=== PATIENT | male | born 1955 | race Caucasian/White ===

== ENCOUNTER 2023-11-18 22:15 | Emergency (ER) | payer OTHER, SELFPAY ==
[2023-11-18 22:17] VITALS: BP 176/94
--- NOTE | 2023-11-18 23:56 | ED.GENMED ---
History of Present Illness
<HOLA Guidry - Last Filed: 11/19/23 01:45>
General
Chief Complaint: Eye Problems
Source: patient
Exam Limitations: none
Time Seen by Provider: 11/18/23 23:38
Nursing documentation reviewed up to this point in time: agreed with
Travel History
Have you had any contact with someone who has COVID-19?: No
Do you have any symptoms of coronavirus? Fever > 100 degrees, chills, cough, shortness of breath, sore throat, loss of taste or smell, muscle aches, or headache?: No
History of Present Illness
History of Present Illness:
This is a 68 year old male, with a PMH of DM and macular degeneration, who presents to the ED c/o left eye pain and redness x 1 day. Pt states he had an injection in his eye 5 days ago for his diabetes. He states he had pain post injection but it
was getting better up until today. He used ofloxacin topical eye drops Q2hrs x 2 days after the injection. Today, he has had increasing pain and redness which prompted him to come in tonight. He has had the same injection in his right eye 1 year
ago, but the pain this time seems worse. He states his vision is still blurry but notes that is normal for him after the injection. He denies any eye drainage, fever, ARTHUR, CP, SOB, nausea, or vomiting. Also denies any possible foreign body today.
Past History
<HOLA Guidry - Last Filed: 11/19/23 01:45>
Past History
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
ED Past Surgical History: None
Social History
Tobacco: Non-smoker
Alcohol: None
Drug: None
Personal:
Living: with family
Employment: Employed
Family History
Family History: Negative Early CAD
Review of Systems
<HOLA Guidry - Last Filed: 11/19/23 01:45>
Review of Systems
All Other Systems: ROS reviewed and negative except as documented in HPI and ROS
Constitutional: Reports no symptoms; Denies fever or chills
EENT: Reports other (left eye pain and redness)
Respiratory: Reports no symptoms; Denies trouble breathing
Cardiac: Reports no symptoms; Denies chest pain
ABD/GI: Reports no symptoms; Denies nausea or vomiting
: Reports no symptoms
Musculoskeletal: Reports no symptoms
Skin: Reports no symptoms
Neurological: Reports no symptoms; Denies headache
Psychiatric: Reports no symptoms
Phy Exam
<Lila Luna [facility] - Last Filed: 11/19/23 01:45>
General Physical Exam
General Presentation: well appearing and no apparent distress
General age: appears stated age
General Skin: warm and dry
General Habitus: normal
General Mental: alert
General Hydration: appears well hydrated
ENT Exam
ENT Exam: EOMI, pharynx normal, normocephalic and swallowing well
Eye Exam
Eye Exam: PERRL, EOMI, globe normal and other (erythema noted along medial conjunctiva and sclera. There is no drainage, discharge, or crusting)
Able to obtain acuity?: Yes
Right 20/: 40
Left 20/: 80
Both 20/: 30
Eye Exam General: PERRL: bilateral and EOM intact: bilateral
Pupil Exam: Bilateral: round and reactive
Cornea Exam: abrasion: Left
Tonometry: Side: Left
Pressure: 15
Cardiovascular Exam
Cardiovascular Exam: regular rate/rhythm, no murmur and normal peripheral pulses
Pulmonary Exam
Pulmonary Exam: lungs clear and no respiratory distress
Gastrointestinal Exam
Gastrointestinal Exam: normal bowel sounds, non tender, soft and non distended
Neurological Exam
Neurological Exam: alert and oriented x3
Musculoskeletal Exam
Musculoskeletal Exam: full ROM and no edema
Skin Exam
Skin Exam: normal color and warm/dry
Psychiatric Exam
Psychiatric Exam: normal mood/affect
Course
<HOLA Guidry - Last Filed: 11/19/23 01:45>
Vital Signs
Initial and Last Documented VS:
Initial Vital Signs
Temp Pulse Resp BP Pulse Ox
98.3 F 100 20 176/94 98
11/18/23 22:17 11/18/23 22:17 11/18/23 22:17 11/18/23 22:17 11/18/23 22:17
Last Documented Vital Signs
Temp Pulse Resp BP Pulse Ox
98.3 F 100 20 176/94 98
11/18/23 22:17 11/18/23 22:17 11/18/23 22:17 11/18/23 22:17 11/18/23 22:17
<Raul Rea DO - Last Filed: 11/19/23 00:31>
Vital Signs
Initial and Last Documented VS:
Initial Vital Signs
Temp Pulse Resp BP Pulse Ox
98.3 F 100 20 176/94 98
11/18/23 22:17 11/18/23 22:17 11/18/23 22:17 11/18/23 22:17 11/18/23 22:17
Last Documented Vital Signs
Temp Pulse Resp BP Pulse Ox
98.3 F 100 20 176/94 98
11/18/23 22:17 11/18/23 22:17 11/18/23 22:17 11/18/23 22:17 11/18/23 22:17
<HOLA Guidry - Last Filed: 11/19/23 01:45>
*Critical Care Note
Total Time (30-74mins, 75-104mins- exclusive of procedures): Not Applicable
ED Attending Note
<HOLA Guidry - Last Filed: 11/19/23 01:45>
-
Portions of this chart may have been created with voice recognition software.� Occasional wrong word or��sound alike� substitutions may have occurred due to the inherent limitations of voice recognition software.
<Raul Rea DO - Last Filed: 11/19/23 00:31>
ED Attending Note
Patient seen and examined by attending physician: Yes
I performed the substantive portion of visit, reviewed & personally made and approve the management plan that is documented in note by myself or CAROLYN.: Yes
ED Attending Note:
Pleasant 62-year-old male presents with
Discharge Plan
Departure
Patient Disposition: Home (Routine Discharge)
Date of Disposition: 11/19/23
Time of Disposition: 00:15
Patient with high blood pressure during this ER visit?: Yes
Discharge Problem:
Corneal abrasion, left
Instructions: Corneal Abrasion (DC), How to Use Eye Drops, BLOOD PRESSURE
Prescriptions:
No Action
insulin glargine 100 U/ML solution
12 unit SQ DAILY
insulin aspart U-100 [Novolog U-100 Insulin aspart] 1,000 UNITS/10 ML solution
5 - 8 units SC .BEFORE MEALS
hydrocodone-acetaminophen 1 TABLET tablet
1 tab PO Q4HPRN PRN (Reason: breakthrough pain) Qty: 10 0RF
tamsulosin 0.4 MG capsule
0.4 mg PO DAILY Qty: 7 0RF
diclofenac sodium 75 MG tablet,delayed release (DR/EC)
75 mg PO BID Qty: 10 0RF
Referrals:
UNKNOWN - PT NOT,INTERVIEWE [Unknown Provider] -
Activity Restrictions/Additional Instructions:
Please continue to take your ofloxacin that was previously prescribed every 4 hours while awake for 5 days. Follow-up with your warp spooler tomorrow to discuss this corneal abrasion.
It was a pleasure meeting you and taking part in your care. We hope for your continued healing and wellness.
Please read discharge instructions in their entirety. However, they are for general education and may not describe your exact diagnosis at discharge. Information on your ER visit and medical conditions were discussed with you along with appropriate
follow up information...
If indicated, please take your medications as instructed and indicated on discharge paperwork.
Please schedule a follow up appointment as directed. Call to schedule an appointment
Please return to the emergency department with ANY change in, persisting, or worsening of symptoms. If any of your symptoms do not improve, or persist, or become more severe within 6-12 hours, please return to the emergency department for further
care.
Please return to the emergency department if you develop a headache, neck pain/stiffness, fever greater than 100.4F, chest pain, shortness of breath, persistent nausea, vomiting, slurred speech, difficulty walking, numbness/tingling, weakness, signs
of infection or any other symptoms that are worrisome to you.
If you have any questions or concerns please do not hesitate to call the Hospital at or E-mail me directly at [email or web address]
Interventions
Interventions:
*Risk Screen - Suicide Last Done: 11/18/23 22:17
*Neglect/Abuse Screening Last Done: 11/18/23 22:17
*Nursing Disposition Last Done: 11/19/23 00:23
Discharge Date and Time
Discharge Date/Time: 11/19/23 00:24
== END 2023-11-19 00:24 | disposition home or self-care (01) ==
LOC: EMR 22:15
PROVIDERS: EMERGENCY PHYSICIAN Student in an Organized Health Care Education/Training Program; FAMILY PHYSICIAN Family Medicine
DX: S05.02XA Injury of conjunctiva and corneal abrasion without foreign body, left eye, initial encounter (principal); X58.XXXA Exposure to other specified factors, initial encounter; E11.9 Type 2 diabetes mellitus without complications; H35.30 Unspecified macular degeneration
CPT/HCPCS: 99282

== ENCOUNTER 2024-05-30 22:43 | Emergency (ER) | payer OTHER, SELFPAY ==
[2024-05-30 22:43] VITALS: BMI 19.8
[2024-05-30 23:08] VITALS: BP 152/79
[2024-05-31] VITALS: BP 131/89
--- NOTE | 2024-05-31 00:27 | ED.GENMED ---
History of Present Illness
General
Chief Complaint: Visual Problem
Source: patient
Exam Limitations: none
Time Seen by Provider: 05/31/24 00:19
History of Present Illness
History of Present Illness:
See MDM
Past History
Past History
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
ED Past Surgical History: None
Social History
Tobacco: Non-smoker
Alcohol: None
Drug: None
Personal:
Living: with family
Employment: Employed
Family History
Family History: Negative Early CAD
Phy Exam
Physical Exam
Physical Exam:
See MDM
Course
Orders/Labs/Results
Orders:
Orders
05/31/24 00:26
Visual Acuity- Treatment ONCE
Vital Signs
Initial and Last Documented VS:
Initial Vital Signs
Temp Pulse Resp BP Pulse Ox
97.3 F 78 16 152/79 98
05/30/24 23:08 05/30/24 23:08 05/30/24 23:08 05/30/24 23:08 05/30/24 23:08
Last Documented Vital Signs
Temp Pulse Resp BP Pulse Ox
97.3 F 68 18 130/87 99
05/30/24 23:08 05/31/24 01:00 05/31/24 01:00 05/31/24 01:00 05/31/24 01:00
MDM/Problems Addressed
Differential Diagnosis Includes:
HPI and MDM Narrative:
68-year-old male presenting for evaluation of left eye blurry vision. He noticed it a few hours ago and it is painless. Patient believes this is bleeding in the back of his eye from his known macular degeneration. Follows with Dr. Mauro Genao
for his eye issues and has received needle injections in his right eye for macular degeneration. He states his right eye cleared up but he is now noticing issues in his left eye. Patient believes that this is related to his macular degeneration.
Patient believes he can likely call the immersion metal cleaner tomorrow to be seen expeditiously. Family at bedside is wondering if he can reach out to Dr. Genao's office
Physical exam
General: Well appearing and non-toxic
HEENT: protecting airway. Bilateral pupils equal reactive. EOMI. No hyphema noted. Decreased vision noted to left upper lower medial mejia
Neck: appears supple
CV: No evidence of cyanosis
Resp: No accessory muscle use
Abd: Non-distended
Extremities: No deformities
Neuro: alert
Psych: Normal affect
Skin: Intact
Problems Addressed including Acute and Chronic Conditions affecting care:
1. Blurry vision
Acuity: acute
Prognosis: stable
Details: Likely in the setting of his macular degeneration
Updates
Patient is visual acuity in the right eye is 20/80. Patient unable to read any of the letters with his left eye.
1:45 AM Case discussed with his immersion metal cleaner Dr. Genao who indicated patient go home and to call the office for Luu in the morning for evaluation
Differential Diagnosis (but not limited to): Macular degeneration, stroke
Testing considered: CT head
Drug therapy (if applicable): OTC meds, please see d/c instruction regarding Rx drugs
Amount and/or Complexity of Data Reviewed
Clinical info obtained from: Patient
External data reviewed: N/A
Labs I independently reviewed (but not limited to): N/A
Radiology: N/A
Pulse Ox: not hypoxic
EKG independently reviewed: N/A
Roofer Apprentice: N/A
Critical Care: N/A
Risk of Complication:
Social Determinants of health: Good social support
Discussed with other providers: Ophthalmology
Escalation of Care includes Admit/Obs: After being observed in the Emergency Department, pt stable for discharge.
Occasional wrong word or 'sound a like' substitutions may have occurred due to the inherent limitations of voice recognition software. Read the chart carefully and recognize, using context, where substitutions have occurred.
*Critical Care Note
Total Time (30-74mins, 75-104mins- exclusive of procedures): Not Applicable
ED Attending Note
-
Portions of this chart may have been created with voice recognition software.� Occasional wrong word or��sound alike� substitutions may have occurred due to the inherent limitations of voice recognition software.
Discharge Plan
Departure
Patient Disposition: Home (Routine Discharge)
Date of Disposition: 05/31/24
Time of Disposition: 01:47
Patient with high blood pressure during this ER visit?: No
Discharge Problem:
Blurred vision, left eye
Prescriptions:
No Action
insulin glargine 100 U/ML solution
12 unit SQ DAILY
insulin aspart U-100 [Novolog U-100 Insulin aspart] 1,000 UNITS/10 ML solution
5 - 8 units SC .BEFORE MEALS
hydrocodone-acetaminophen 1 TABLET tablet
1 tab PO Q4HPRN PRN (Reason: breakthrough pain) Qty: 10 0RF
tamsulosin 0.4 MG capsule
0.4 mg PO DAILY Qty: 7 0RF
diclofenac sodium 75 MG tablet,delayed release (DR/EC)
75 mg PO BID Qty: 10 0RF
Referrals:
Williams Amor MD [Family Provider] -
Activity Restrictions/Additional Instructions:
As we discussed, Dr. Genao is aware you are here today. He suggested calling the office for Luu in the morning and to let the banking officer know that you should be seen.
Interventions
Interventions:
*Risk Screen - Suicide Last Done: 05/30/24 23:08
*General Assessment Last Done: 05/30/24 23:08
*Neglect/Abuse Screening Last Done: 05/30/24 23:08
*ED COVID-19 Vaccine History Last Done: 05/31/24 00:41
ED- Neurological Assessment Last Done: 05/31/24 00:40
ED-EENT Assessment Last Done: 05/31/24 00:40
ED Swallowing Screen Last Done: 05/31/24 00:40
Discharge Date and Time
Print Language: [id number]
--- NOTE | 2024-05-31 00:37 | EDRN ---
At 00:26, RN assessed pt.'s visual acuity via snellen chart. Pt. reports he normally wears glasses that he is prescribed, but he does not have them with him, so test was done without corrective lenses, which pt. normally wears. Pt.'s left eye was
untestable, as he could not even see the first line of the snellen chart, pt. states, 'I can't see any of the letters out of my left eye, I can tell you are there and holding something like I see your figure, but I can't make out any of the
letters'.
[2024-05-31 01:00] VITALS: BP 130/87
== END 2024-05-31 02:13 | disposition home or self-care (01) ==
LOC: EMR 22:43
PROVIDERS: EMERGENCY PHYSICIAN Student in an Organized Health Care Education/Training Program; FAMILY PHYSICIAN Family Medicine
DX: H53.8 Other visual disturbances (principal); H35.30 Unspecified macular degeneration; E11.9 Type 2 diabetes mellitus without complications
CPT/HCPCS: 99282

== ENCOUNTER 2024-07-23 21:55 | Emergency (ER) | payer OTHER, SELFPAY ==
[2024-07-23 22:01] VITALS: BP 124/84
--- NOTE | 2024-07-24 00:24 | ED.GENMED ---
History of Present Illness
General
Chief Complaint: Skin Problem
Source: patient
Exam Limitations: none
Time Seen by Provider: 07/23/24 23:56
Nursing documentation reviewed up to this point in time: agreed with
History of Present Illness
History of Present Illness:
This is a 68-year-old gentleman who has history of insulin dependent diabetes, somewhat poorly controlled with A1c of 9.6 May of this year. Following with endocrine as well as PCP. Recently began CGM last month and placed a CGM pod on his
right posterior upper arm over 2 weeks ago without difficulty. Removed that CGM and then replaced it with another one 3 days ago. After 3 days, CGM stopped functioning and he received an error message telling him to remove the CGM. When he did so
he noticed focal redness and a small 'pus pocket' at site of CGM puncture site.
He has not had a fever nor chills. He does notice mild local tenderness to palpation.
He admits that blood sugars have been 'up-and-down'
He does have regular glucometer with glucometer strips available to him.
No prior history of MRSA nor skin abscesses.
Past History
Past History
ED Past Medical History: Arrthythmia, HTN, Hypercholesterolemia, IDDM and Psychiatric (Anxiety)
ED Past Surgical History: None
Social History
Tobacco: Non-smoker
Alcohol: None
Drug: None
Personal:
Living: with family
Employment: Retired
Family History
Family History: Negative Early CAD
Phy Exam
Physical Exam
Physical Exam:
GENERAL: 68-year-old gentleman appears his stated age, bright and alert, pleasant, appears in no acute distress. Afebrile. Son is accompanying.
EYE: anicteric
NECK: Supple, nontender, no meningismus, no significant adenopathy.
ENT: oral mucosa is moist. No rhinorrhea.
CARDIAC: Regular rate and rhythm. no murmur.
LUNGS: Clear breath sounds bilaterally, no acute respiratory distress
ABDOMEN: Soft, nondistended, without focal tenderness
NEUROLOGICAL: Alert and oriented x3, no focal neuro deficits. Gait is jimenez and steady.
SKIN: Warm and dry, normal color, good turgor. The right posterior upper arm has a 1.5 cm firm red nodule with central pustule with very minimal surrounding erythema. Mild local tenderness to palpation. There is no lymphangitis. No palpable
heat. No axillary adenopathy.
MUSCULOSKELETAL: No C/C/E. peripheral pulses are full and equal b/l.
PSYCH: Normal and appropriate interaction.
Course
Orders/Labs/Results
Orders:
Orders
07/24/24 00:00
Humerus, Right 2 Views [CR Humerus - Right Min 2 View*] Stat
Comment:
Reason For Exam: tender
07/24/24 00:18
Doxycycline [Vibramycin] 100 mg PO NOW STA
Vital Signs
Initial and Last Documented VS:
Initial Vital Signs
Temp Pulse Resp BP Pulse Ox
97.9 F 76 18 124/84 98
07/23/24 22:01 07/23/24 22:01 07/23/24 22:01 07/23/24 22:01 07/23/24 22:01
Last Documented Vital Signs
Temp Pulse Resp BP Pulse Ox
97.9 F 79 19 142/87 98
07/23/24 22:01 07/24/24 00:35 07/24/24 00:35 07/24/24 00:35 07/24/24 00:35
MDM/Problems Addressed
Differential Diagnosis Includes:
Patient presents with focal skin abscess right posterior upper arm at site of CGM pod. He does not believe any of the pod mechanical parts were disrupted upon removal but must consider retained foreign body.
Will check x-ray to assess soft tissues for potential foreign body.
Will initiate doxycycline for focal skin abscess with mild surrounding cellulitis. No prior history of MRSA but doxycycline should cover potential community-acquired MRSA.
He does have history of diabetes with hemoglobin A1c reportedly of 9 in May. Overall not well controlled. Following with endocrine. Nothing in history nor exam to suggest HHNK nor DKA.
Overall quite well in appearance and afebrile.
Skin abscess is quite firm without fluctuance. Not amenable to I&D at this point.
Will initiate a course of doxycycline and recommend supportive measures, local warm compresses 4 times daily. Tylenol versus ibuprofen as needed for pain.
Prompt follow-up with PCP for recheck.
Return precautions discussed.
Chronic conditions affecting care: DM
*Radiology
Radiology exam reviewed: preliminary read by ED provider (X-ray right upper arm shows no evidence of foreign body, no subcu air.)
*Pulse Oximetry
Patient hypoxic: no
*Critical Care Note
Total Time (30-74mins, 75-104mins- exclusive of procedures): Not Applicable
ED Attending Note
-
Portions of this chart may have been created with voice recognition software.� Occasional wrong word or��sound alike� substitutions may have occurred due to the inherent limitations of voice recognition software.
Discharge Plan
Departure
Patient Disposition: Home (Routine Discharge)
Date of Disposition: 07/24/24
Time of Disposition: 00:44
Patient with high blood pressure during this ER visit?: No
Condition: Good
Discharge Problem:
Cutaneous abscess of right upper extremity
Instructions: Skin Abscess
Prescriptions:
New
doxycycline monohydrate 100 mg capsule
100 mg PO BID Qty: 20 1RF
No Action
insulin glargine 100 U/ML solution
12 unit SQ DAILY
insulin aspart U-100 [Novolog U-100 Insulin aspart] 1,000 UNITS/10 ML solution
5 - 8 units SC .BEFORE MEALS
hydrocodone-acetaminophen 1 TABLET tablet
1 tab PO Q4HPRN PRN (Reason: breakthrough pain) Qty: 10 0RF
tamsulosin 0.4 MG capsule
0.4 mg PO DAILY Qty: 7 0RF
diclofenac sodium 75 MG tablet,delayed release (DR/EC)
75 mg PO BID Qty: 10 0RF
Referrals:
Williams Amor MD [Family Provider] - Follow up in 2-3 days
Interventions
Interventions:
*Risk Screen - Suicide Last Done: 07/23/24 22:04
*General Assessment Last Done: 07/23/24 22:04
*Neglect/Abuse Screening Last Done: 07/23/24 22:04
ED-Skin Assessment Last Done: 07/23/24 23:16
Discharge Date and Time
Print Language: MONGOLIAN
[2024-07-24] MEDS: VIBRAMYCIN 100 MG PO (00:32)
[2024-07-24 00:35] VITALS: BP 142/87
== END 2024-07-24 00:51 | disposition home or self-care (01) ==
LOC: EMR 21:55
PROVIDERS: EMERGENCY PHYSICIAN Emergency Medicine; FAMILY PHYSICIAN Family Medicine
DX: L02.413 Cutaneous abscess of right upper limb (principal); I10 Essential (primary) hypertension; E78.00 Pure hypercholesterolemia, unspecified; E11.9 Type 2 diabetes mellitus without complications
CPT/HCPCS: 99283; 73060

== ENCOUNTER 2024-08-21 14:47 | Emergency (ER) | payer OTHER, SELFPAY ==
[2024-08-21 14:50] VITALS: BP 162/87
[2024-08-21 16:17] VITALS: BMI 18.9
--- NOTE | 2024-08-21 17:02 | ED.GENMED ---
History of Present Illness
<Zoila Ovalle MD, Resident - Last Filed: 08/21/24 17:14>
General
Chief Complaint: Fall
Time Seen by Provider: 08/21/24 16:30
History of Present Illness
History of Present Illness:
68 y/o male with pmhx of IDDM presenting to the ED with right groin pain. Patient notes he got pulled to the ground by his dog around noon today. Notes hitting his head on the ground. Denies LOC, nausea, vomiting, neck pain, headache, change in
vision. Patient states was able to stand up and walk back to his home after his fall but currently is having pain in his right groin bearing weight.
Past History
<Zoila Ovalle MD, Resident - Last Filed: 08/21/24 17:14>
Past History
ED Past Medical History: Arrthythmia, HTN, Hypercholesterolemia, IDDM and Psychiatric (Anxiety)
ED Past Surgical History: None
Social History
Tobacco: Non-smoker
Alcohol: None
Drug: None
Personal:
Living: with family
Employment: Retired
Family History
Family History: Negative Early CAD
Review of Systems
<Zoila Ovalle MD, Resident - Last Filed: 08/21/24 17:14>
Review of Systems
Constitutional: Reports no symptoms
EENT: Reports no symptoms
Respiratory: Reports no symptoms
Cardiac: Reports no symptoms
ABD/GI: Reports no symptoms
: Reports no symptoms
Musculoskeletal: Reports other (right groin pain)
Skin: Reports no symptoms
Neurological: Reports no symptoms
Endocrine: Reports no symptoms
Hematologic/Lymphatic: Reports no symptoms
Psychiatric: Reports no symptoms
Phy Exam
<Zoila Ovalle MD, Resident - Last Filed: 08/21/24 17:14>
Physical Exam
Physical Exam:
GENERAL: Alert, in no apparent distress.
EYE: pupils equal and reactive.
NECK: Supple, no significant adenopathy.
ENT: o/p clr, mmm.
CARDIAC: Regular rate and rhythm.
LUNGS: Clear breath sounds bilaterally, no acute respiratory distress, no wheezes/rales/rhonchi
ABDOMEN: Soft, without focal tenderness, no r/g, no cvat
NEUROLOGICAL: Alert and oriented, no focal neuro deficits
SKIN: Warm and dry, skin intact.
MUSCULOSKELETAL: No edema, well perfused. RUE no tenderness, normal ROM. RLE no joint tenderness, no tenderness on greater trochanter, knee, ankle. Pain reproduced with active and passive flexion of the hip. External/internal hip rotation without
pain. ROm normal. Proximal and distal pulses strong bilaterally.
PSYCH: Normal and appropriate interaction.
Course
<Zoila Ovalle MD, Resident - Last Filed: 08/21/24 17:14>
Orders/Labs/Results
Orders:
Orders
08/21/24 16:15
CR Hip - RT w/wo Pel 2-3 Vw* Urgent
Comment:
Reason For Exam: fall, pain
Include a pelvis x-ray?: Yes
08/21/24 16:56
Acetaminophen [Tylenol] 1,000 mg PO NOW STA
08/21/24 18:29
CT Pelvis W/o Iv Contrast Urgent
Comment:
Reason For Exam: concern for right pelvic fracture
08/21/24 21:08
Walker [Treatment- Walker] ONCE
Ibuprofen [Motrin] 600 mg PO NOW STA
Vital Signs
Initial and Last Documented VS:
Initial Vital Signs
Temp Pulse Resp BP Pulse Ox
99.1 F 90 18 162/87 98
08/21/24 14:50 08/21/24 14:50 08/21/24 14:50 08/21/24 14:50 08/21/24 14:50
Last Documented Vital Signs
Temp Pulse Resp BP Pulse Ox
99.1 F 85 16 168/88 97
08/21/24 14:50 08/21/24 21:15 08/21/24 21:15 08/21/24 21:01 08/21/24 21:02
<Mauro Conrad MD - Last Filed: 08/21/24 22:45>
Orders/Labs/Results
Orders:
Orders
08/21/24 16:15
CR Hip - RT w/wo Pel 2-3 Vw* Urgent
Comment:
Reason For Exam: fall, pain
Include a pelvis x-ray?: Yes
08/21/24 16:56
Acetaminophen [Tylenol] 1,000 mg PO NOW STA
08/21/24 18:29
CT Pelvis W/o Iv Contrast Urgent
Comment:
Reason For Exam: concern for right pelvic fracture
08/21/24 21:08
Walker [Treatment- Walker] ONCE
Ibuprofen [Motrin] 600 mg PO NOW STA
Vital Signs
Initial and Last Documented VS:
Initial Vital Signs
Temp Pulse Resp BP Pulse Ox
99.1 F 90 18 162/87 98
08/21/24 14:50 08/21/24 14:50 08/21/24 14:50 08/21/24 14:50 08/21/24 14:50
Last Documented Vital Signs
Temp Pulse Resp BP Pulse Ox
99.1 F 85 16 168/88 97
08/21/24 14:50 08/21/24 21:15 08/21/24 21:15 08/21/24 21:01 08/21/24 21:02
<Zoila Ovalle MD, Resident - Last Filed: 08/21/24 17:14>
MDM/Problems Addressed
Differential Diagnosis Includes:
Pelvic fracture
Hip fracture
Ligamentous injury
MDM/Problems Addressed:
- Hip + Pelvis x-ray
- Pain management
- Will decide on hip/pelvic CT after x-ray
<Zoila Ovalle MD, Resident - Last Filed: 08/21/24 17:14>
*Critical Care Note
Total Time (30-74mins, 75-104mins- exclusive of procedures): Not Applicable
ED Attending Note
<Zoila Ovalle MD, Resident - Last Filed: 08/21/24 17:14>
-
Portions of this chart may have been created with voice recognition software.� Occasional wrong word or��sound alike� substitutions may have occurred due to the inherent limitations of voice recognition software.
<Mauro Conrad MD - Last Filed: 08/21/24 22:45>
ED Attending Note
Patient seen and examined by attending physician: Yes
I performed a history and physical exam of patient and discussed management with resident, I reviewed resident's note and agree with documented findings and plan of care.: Yes
ED Attending Note:
Patient fell landing on his right side. Complaining of right groin pain. No other injury or complaint. Had a minor head injury. Denies headache neck pain chest pain arm pain etc. Only complaining of pain in the right groin. Able to ambulate
but with pain denies thinners
On exam patient is nontoxic in no distress. Normocephalic atraumatic. Neck supple and nontender. No chest wall tenderness. Abdomen is nontender. Upper extremities are unremarkable. No true pain with right hip rotation. No deformity. No
shortening or rotation. No pain with pelvic compression.
Impression is right inguinal pain. Clinically concern for a pelvic fracture. No other serious trauma. X-rays were unremarkable. CT showed a sacral fracture. Nondisplaced fracture of the right pubis and superior pubic ramus. Nondisplaced
intra-articular fracture of the right anterior column. Report was sent to orthopedics. Patient would prefer outpatient management. Orthopedics is comfortable with outpatient management with toe-touch walker and follow-up.
Discharge Plan
Departure
Patient Disposition: Home (Routine Discharge)
Date of Disposition: 08/21/24
Time of Disposition: 21:11
Patient with high blood pressure during this ER visit?: Yes
Condition: Good
Discharge Problem:
Pelvic fracture, Sacral fracture
Instructions: Pelvic fracture, BLOOD PRESSURE
Prescriptions:
No Action
insulin glargine 100 U/ML solution
12 unit SQ DAILY
insulin aspart U-100 [Novolog U-100 Insulin aspart] 1,000 UNITS/10 ML solution
5 - 8 units SC .BEFORE MEALS
hydrocodone-acetaminophen 1 TABLET tablet
1 tab PO Q4HPRN PRN (Reason: breakthrough pain) Qty: 10 0RF
tamsulosin 0.4 MG capsule
0.4 mg PO DAILY Qty: 7 0RF
diclofenac sodium 75 MG tablet,delayed release (DR/EC)
75 mg PO BID Qty: 10 0RF
doxycycline monohydrate 100 mg capsule
100 mg PO BID Qty: 20 1RF
Referrals:
Williams Amor MD [Family Provider] -
Eugene Meraz MD [Active] - Follow up in 2-3 days
Activity Restrictions/Additional Instructions:
Touch toe weightbearing. Use the walker all the time
Call the orthopedist Friday for close follow-up
Interventions
Interventions:
*Risk Screen - Suicide Last Done: 08/21/24 14:50
*General Assessment Last Done: 08/21/24 14:50
*Neglect/Abuse Screening Last Done: 08/21/24 14:50
ED- Fall Risk Assessment Last Done: 08/21/24 17:46
*ED COVID-19 Vaccine History Last Done: 08/21/24 16:17
*Nursing Disposition Last Done: 08/21/24 21:55
ED-Musculoskeletal Assessment Last Done: 08/21/24 16:17
ED- Neurological Assessment Last Done: 08/21/24 16:17
ED-Skin Assessment Last Done: 08/21/24 16:20
Discharge Date and Time
Discharge Date/Time: 08/21/24 21:55
Print Language: SLOVENIAN
[2024-08-21] MEDS: TYLENOL 1000 MG PO (17:29)
[2024-08-21 17:30] VITALS: BP 153/80
[2024-08-21 18:00] VITALS: BP 144/74
[2024-08-21 19:00] VITALS: BP 139/74
[2024-08-21 20:00] VITALS: BP 146/81
[2024-08-21 21:01] VITALS: BP 168/88
[2024-08-21] MEDS: MOTRIN 600 MG PO (21:45)
== END 2024-08-21 21:55 | disposition home or self-care (01) ==
LOC: EMR 14:47
PROVIDERS: EMERGENCY PHYSICIAN Emergency Medicine; FAMILY PHYSICIAN Family Medicine
DX: S32.89XA Fracture of other parts of pelvis, initial encounter for closed fracture (principal); S32.19XA Other fracture of sacrum, initial encounter for closed fracture; S09.90XA Unspecified injury of head, initial encounter; W19.XXXA Unspecified fall, initial encounter; E11.9 Type 2 diabetes mellitus without complications; E78.00 Pure hypercholesterolemia, unspecified; I10 Essential (primary) hypertension; Z79.4 Long term (current) use of insulin
CPT/HCPCS: 99284; 72192; 73502

== ENCOUNTER 2024-10-21 19:40 | Emergency (ER) | payer OTHER, SELFPAY ==
[2024-10-21 19:49] VITALS: BP 172/93
[2024-10-21 20:05] LABS: % Basophils 0.7 % (0-2); % Eosinophils 2.9 % (0-6); % Immature Granulocytes 0.2 % (0-0.5); % Lymphocytes 25.5 % (20.5-51.1); % Monocytes 10.1 % (1.7-9.3); % Neutrophils 60.6 % (42.2-75.2); Absolute Eosinophils 0.2 10^3/uL (0-0.7); Absolute Lymphocytes 1.5 10^3/uL (1.2-3.4); Absolute Monocytes 0.6 10^3/uL (0.1-0.6); Absolute Neutrophils 3.5 10^3/uL (1.4-6.5); Hematocrit 37.7 % (39.0-52.0); Hemoglobin 12.3 g/dL (13.0-18.0); Mean Corp Hgb Conc. 32.6 g/dL (33.0-37.0); Mean Corpuscular Hgb 28.9 pg (27.0-31.0); Mean Corpuscular Volume 88.7 fL (80.0-94.0); Mean Platelet Volume 9.4 fL (7.4-10.4); Nucleated Red Blood Cells % 0 % (-); Platelet Count 205 10^3/uL (130-400); Red Blood Cell Count 4.25 10^6/uL (4.70-6.10); Red Cell Dist. Width 13.3 % (11.5-14.5); White Blood Cell Count 5.8 10^3/uL (4.8-10.8)
[2024-10-21 20:24] LABS: ALT (SGPT) 25 U/L (0-50); AST (SGOT) 27 U/L (17-59); Albumin 4.4 g/dl (3.5-5.0); Alkaline Phosphatase 107 U/L (38-126); Blood Urea Nitrogen 37 mg/dl (9-20); Calcium 9.1 mg/dl (8.4-10.2); Carbon Dioxide 29 mmol/L (22-30); Chloride 99 mmol/L (98-107); Glucose 208 mg/dl (70-99); Potassium 4.4 mmol/L (3.5-5.1); Sodium 136 mmol/L (135-145); Total Bilirubin 0.5 mg/dl (0.2-1.3); Total Protein 6.7 g/dl (6.3-8.2); eGFR > 60.00
--- NOTE | 2024-10-21 20:25 | ED.GENMED ---
History of Present Illness
General
Chief Complaint: Swelling
Time Seen by Provider: 10/21/24 20:21
History of Present Illness
History of Present Illness:
TIME OF INITIAL ENCOUNTER: 8:25 PM
HPI: Over the past couple weeks, the patient was concerned about the appearance of the right greater than left foot. He describes concerns of varicosities at the affected area. He has no shortness of breath. 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
feet 'all day'.
EXAM:
GENERAL: Well appearing in no distress
HEENT: Moist oral mucosa
NEUROLOGIC: Excellent strength all extremities, no obvious coordination deficits
PSYCHIATRIC: Appropriate mental status, normal insight and judgement
EXTREMITIES: There are superficial varicosities which are rather extensive to the medial aspects of both ankles, there is mild soft tissue swelling at the right ankle more than the left ankle, he has strong DP pulses bilaterally
NUMBER AND COMPLEXITY OF PROBLEMS ADDRESSED AT THE ENCOUNTER
� Chronic conditions affecting care: IDDM, A-fib, high blood pressure
� Acute Exacerbation and/or Progression of Chronic Illness: This is an acute problem
� Differential Diagnosis includes: Superficial varicosities, venous stasis, venous insufficiency, no evidence for arterial compromise
AMOUNT AND/OR COMPLEXITY OF DATA TO BE REVIEWED AND ANALYZED
� I performed an independent evaluation of and my interpretation is:
EKG:
CT:
X-rays:
Laboratory Studies: White count 5.8, hemoglobin 12.3, BUN 37, creatinine 1.0 glucose 208
Other: Ultrasound imaging personally reviewed and I agree with radiologist interpretation that there is no DVT
� Review of other/old records: The patient was seen in the emergency department with abdominal pain 2 months ago.
� Clinical information was obtained by an independent historian: I spoke to the son at bedside
� Prescriptions/Medications Considered but not given:
� Further testing considered but not performed:
RISK OF COMPLICATIONS AND/OR MORBIDITY OR MORTALITY OF PATIENT MANAGEMENT
� Social determinants of health affecting care: Lives at home
� Discussion with other providers:
� Escalation of care including admission/observation vs risk of discharge considered: Recommended that he uses compression stockings and I will also given contact information for vascular.
ANY OTHER UPDATES:
Past History
Past History
ED Past Medical History: Arrthythmia, HTN, Hypercholesterolemia, IDDM and Psychiatric (Anxiety)
ED Past Surgical History: None
Social History
Tobacco: Non-smoker
Alcohol: None
Drug: None
Personal:
Living: with family
Employment: Retired
Family History
Family History: Negative Early CAD
Phy Exam
Physical Exam
Physical Exam:
See HPI
Scores
Heart Failure Risk
Heart Failure Risk Score: Not Applicable
Course
Orders/Labs/Results
Orders:
Orders
10/21/24 19:58
Complete Blood Count/With Diff Urgent
Comprehensive Metabolic Panel Urgent
10/21/24 20:02
US Periph Venous LOWER Ext [place] Urgent
Comment:
Reason For Exam: swelling
Abnormal Lab Results
10/21/24
19:58
RBC 4.25 L 10^6/uL
(4.70-6.10)
Hgb 12.3 L g/dL
(13.0-18.0)
Hct 37.7 L %
(39.0-52.0)
MCHC 32.6 L g/dL
(33.0-37.0)
Monocytes % 10.1 H %
(1.7-9.3)
BUN 37 H mg/dl
(9-20)
Glucose 208 H mg/dl
(70-99)
10/21/24 19:58
10/21/24 19:58
Vital Signs
Initial and Last Documented VS:
Initial Vital Signs
Temp Pulse Resp BP Pulse Ox
36.8 C 91 18 172/93 99
10/21/24 19:49 10/21/24 19:49 10/21/24 19:49 10/21/24 19:49 10/21/24 19:49
Last Documented Vital Signs
Temp Pulse Resp BP Pulse Ox
36.8 C 91 18 172/93 99
10/21/24 19:49 10/21/24 19:49 10/21/24 19:49 10/21/24 19:49 10/21/24 19:49
*Critical Care Note
Total Time (30-74mins, 75-104mins- exclusive of procedures): Not Applicable
ED Attending Note
-
Portions of this chart may have been created with voice recognition software.� Occasional wrong word or��sound alike� substitutions may have occurred due to the inherent limitations of voice recognition software.
Discharge Plan
Departure
Patient Disposition: Home (Routine Discharge)
Date of Disposition: 10/21/24
Time of Disposition: 21:32
Patient with high blood pressure during this ER visit?: Yes
Discharge Problem:
Superficial varicosities
Instructions: Varicose Veins (DC), BLOOD PRESSURE
Prescriptions:
No Action
insulin glargine 100 U/ML solution
12 unit SQ DAILY
insulin aspart U-100 [Novolog U-100 Insulin aspart] 1,000 UNITS/10 ML solution
5 - 8 units SC .BEFORE MEALS
hydrocodone-acetaminophen 1 TABLET tablet
1 tab PO Q4HPRN PRN (Reason: breakthrough pain) Qty: 10 0RF
tamsulosin 0.4 MG capsule
0.4 mg PO DAILY Qty: 7 0RF
diclofenac sodium 75 MG tablet,delayed release (DR/EC)
75 mg PO BID Qty: 10 0RF
doxycycline monohydrate 100 mg capsule
100 mg PO BID Qty: 20 1RF
Referrals:
Lucy Feldman MD [Active] - Follow up in 1 week
Activity Restrictions/Additional Instructions:
You have varicose veins at both ankles. I have given you the contact information for a local vascular surgeon for follow-up. Your arterial pulses are excellent and there is no sign of a blood clot in the veins based on the ultrasound. Basic work
was relatively unremarkable however your blood sugar was high at 208.
Interventions
Interventions:
*Risk Screen - Suicide Last Done: 10/21/24 19:49
*General Assessment Last Done: 10/21/24 19:49
*Neglect/Abuse Screening Last Done: 10/21/24 19:49
Discharge Date and Time
Print Language: KITTITIAN
== END 2024-10-21 21:55 | disposition home or self-care (01) ==
LOC: EMR 19:40
PROVIDERS: EMERGENCY PHYSICIAN Emergency Medicine; FAMILY PHYSICIAN Family Medicine
DX: I83.93 Asymptomatic varicose veins of bilateral lower extremities (principal); I10 Essential (primary) hypertension; E11.9 Type 2 diabetes mellitus without complications; E78.00 Pure hypercholesterolemia, unspecified; F41.9 Anxiety disorder, unspecified
CPT/HCPCS: 99284; 80053; 85025; 93970

== ENCOUNTER 2025-08-17 22:42 | Emergency (ER) | payer OTHER, SELFPAY ==
[2025-08-17 22:45] VITALS: BP 163/89
[2025-08-18 01:00] VITALS: BMI 20.5
--- NOTE | 2025-08-18 03:05 | ED.GENMED ---
History of Present Illness
General
Chief Complaint: Cold/Flu/URI Symptoms
Source: patient and previous hospital records (Previous laboratory studies October 2024. Normal renal function.)
Exam Limitations: none
Time Seen by Provider: 08/18/25 02:52
Nursing documentation reviewed up to this point in time: agreed with
History of Present Illness
History of Present Illness:
HISTORY OF PRESENT ILLNESS
The patient is a 69-year-old male with a history of insulin requiring diabetes diabetes who presented with a recent onset of upper respiratory symptoms confirmed to be COVID-19 as of yesterday. Mild URI symptoms began yesterday. He reports the
development of significant phlegm and sore throat beginning yesterday. There is no fever present, but he does experience body aches, which he manages with ibuprofen and acetaminophen. The patient reports no history of shortness of breath, lung
problems, asthma, or COPD, and denies smoking. Additionally, he describes a sensation of mucus accumulation in the throat requiring frequent expectoration. The patient�s diabetes is well-controlled with insulin therapy. He has no history of kidney
problems. This is the patients first incidence of COVID-19.
He has had initial COVID-19 vaccinations but no booster COVID vaccines over the past at least 2 perhaps 3 years.
Past History
Past History
ED Past Medical History: Arrthythmia (Remote history of A-fib, last episode 2007), HTN, Hypercholesterolemia, IDDM and Psychiatric (Anxiety)
ED Past Surgical History: None
Social History
Tobacco: Non-smoker
Alcohol: None
Drug: None
Personal:
Living: with family
Employment: Retired
Family History
Family History: Negative Early CAD
Phy Exam
Physical Exam
Physical Exam:
GENERAL: 69-year-old gentleman appears his stated age, awake and alert, pleasant, appears in no acute distress. Easily communicative. No respiratory distress. No cough appreciated during exam. No nasal congestion nor stridor. Handling
secretions well.
EYE: anicteric
NECK: Supple, nontender, no meningismus, no significant adenopathy.
ENT: Facemask in place.
CARDIAC: Regular rate and rhythm. no murmur.
LUNGS: Clear breath sounds bilaterally, no acute respiratory distress, no wheezes/rales/rhonchi
ABDOMEN: Soft, nondistended, without focal tenderness
NEUROLOGICAL: Alert and oriented x3, no focal neuro deficits. Gait is jimenez and steady.
SKIN: Warm and dry, normal color, skin intact. No rash.
MUSCULOSKELETAL: No C/C/E. peripheral pulses are full and equal b/l. No palpable tenderness.
PSYCH: Normal and appropriate interaction.
Course
Orders/Labs/Results
Orders:
Orders
08/18/25 02:26
Complete Blood Count/With Diff Urgent
Comprehensive Metabolic Panel Urgent
Vital Signs
Initial and Last Documented VS:
Initial Vital Signs
Temp Pulse Resp BP Pulse Ox
98.6 F 88 20 163/89 97
08/17/25 22:45 08/17/25 22:45 08/17/25 22:45 08/17/25 22:45 08/17/25 22:45
Last Documented Vital Signs
Temp Pulse Resp BP Pulse Ox
98.6 F 88 20 163/89 99
08/17/25 22:45 08/17/25 22:45 08/17/25 22:45 08/17/25 22:45 08/18/25 01:01
MDM/Problems Addressed
Differential Diagnosis Includes:
DIFFERENTIAL DIAGNOSIS
The differential diagnosis includes, in no particular order and is not limited to:
1. COVID-19 infection (confirmed)
2. Upper respiratory tract infection
3. Influenza
4. Pharyngitis
5. Bronchitis
6. Allergic rhinitis
7. Viral sinusitis
8. Asthma exacerbation (ruled out due to no lung disease history)
9. Gastroesophageal reflux disease (unlikely given symptom profile)
10. Medication side effect (less likely as symptoms align with COVID-19).
MDM/Problems Addressed:
Acute URI x 1 day with positive home COVID test.
Overall well in appearance. No respiratory distress. Pulse ox 99% on room air. No cough appreciated during exam. No difficulty with secretions.
Due to age, history of diabetes, recommend initiation of Paxlovid. Patient agreeable.
His only daily medications are insulin, statin.
At this point no indication for laboratory studies nor imaging.
The plan is to initiate antiviral treatment with Paxlovid, which has been explained to the patient as beneficial in shortening the duration of the viral infection. Considering the patients current use of a statin, the patient was instructed to
discontinue the statin while on Paxlovid due to potential hepatic enzyme interaction. The patient is advised to maintain hydration and continue using acetaminophen or ibuprofen as needed for symptomatic management.
Chronic conditions affecting care: DM, Arrhythmia (Remote history of A-fib with last occurrence 2007. Not maintained on anticoagulants nor antiarrhythmics nor antihypertensives.) and Other (Hyperlipidemia)
*Pulse Oximetry
SaO2: 99
Oxygen Mode of Delivery: Room air
Patient hypoxic: no
*Critical Care Note
Total Time (30-74mins, 75-104mins- exclusive of procedures): Not Applicable
ED Attending Note
-
Portions of this chart may have been created with voice recognition software.� Occasional wrong word or��sound alike� substitutions may have occurred due to the inherent limitations of voice recognition software.
Discharge Plan
Departure
Patient Disposition: Home (Routine Discharge)
Date of Disposition: 08/18/25
Time of Disposition: 03:08
Patient with high blood pressure during this ER visit?: No
Condition: Good
Discharge Problem:
Upper respiratory tract infection due to COVID-19 virus
Instructions: COVID-19 in adults (DC), Coronavirus Home Quarantine
Prescriptions:
New
Paxlovid 150 mg x 2- 100 mg Tablet
See Rx Instructions .ROUTE .COMPLEX 5 Days Qty: 30 0RF
Rx Instructions:
1 dose PO BID
Take Nirmatrelvir 300 mg (2 tabs) and Ritonavir 100 mg (1 tab) by mouth twice a day in AM and PM for 5 days.
No Action
insulin glargine 100 U/ML solution
12 unit SQ DAILY
insulin aspart U-100 [Novolog U-100 Insulin aspart] 1,000 UNITS/10 ML solution
5 - 8 units SC .BEFORE MEALS
hydrocodone-acetaminophen 1 TABLET tablet
1 tab PO Q4HPRN PRN (Reason: breakthrough pain) Qty: 10 0RF
tamsulosin 0.4 MG capsule
0.4 mg PO DAILY Qty: 7 0RF
diclofenac sodium 75 MG tablet,delayed release (DR/EC)
75 mg PO BID Qty: 10 0RF
doxycycline monohydrate 100 mg capsule
100 mg PO BID Qty: 20 1RF
Referrals:
UNKNOWN - PT DOES,NOT KNOW [Family Provider]
Activity Restrictions/Additional Instructions:
Hold your statin over the next 5 days while taking Paxlovid. You can resume the day after Paxlovid has completed.
Stay well-hydrated on a daily basis. Continue Tylenol versus ibuprofen as needed for fever, aches.
Follow-up with your primary care physician as needed.
Interventions
Interventions:
*Risk Screen - Suicide Last Done: 08/17/25 22:48
*General Assessment Last Done: 08/17/25 22:48
*Neglect/Abuse Screening Last Done: 08/18/25 01:01
*ED COVID-19 Vaccine History Last Done: 08/17/25 22:48
*ED Influenza Vaccine History Last Done: 08/17/25 22:48
[facility] Fall Risk Assessment Tool Last Done: 08/18/25 01:01
ED- Pulmonary Assessment Last Done: 08/18/25 01:01
Discharge Date and Time
Print Language: [id number]
== END 2025-08-18 03:21 | disposition home or self-care (01) ==
LOC: EMR 22:42
PROVIDERS: EMERGENCY PHYSICIAN Emergency Medicine
DX: U07.1 COVID-19 (principal); I48.91 Unspecified atrial fibrillation; I10 Essential (primary) hypertension; E78.00 Pure hypercholesterolemia, unspecified; Z79.4 Long term (current) use of insulin
CPT/HCPCS: 99282